=== PATIENT | male | born 1985 ===

== ENCOUNTER 2025-04-15 10:15 | Outpatient (CLI) | payer OTHER | END 2025-04-15 10:17 | disposition home or self-care (01) | LOC: RAD 10:15 | DX: M79.674 Pain in right toe(s) (principal) ==

== ENCOUNTER 2025-04-28 14:32 | Outpatient (CLI) | payer OTHER | END 2025-04-28 14:41 | disposition home or self-care (01) | LOC: RAD 14:32 → EDBD 14:32 → RAD 14:41 | PROVIDERS: ATTEND Orthopaedic Surgery | DX: S92.511A Displaced fracture of proximal phalanx of right lesser toe(s), initial encounter for closed fracture (principal) ==